=== PATIENT | male | born 1975 | race Caucasian/White ===

== ENCOUNTER 2016-08-14 18:22 | Emergency (ER) | payer SELFPAY ==
[2016-08-14] MEDS ORDERED: NICOTINE 21 MG/24 HR TRANSDERM ONE (19:45)
[2016-08-14] MEDS ORDERED: ONDANSETRON 4 MG VIAL ONE (19:46)
[2016-08-14] MEDS ORDERED: SODIUM CHLORIDE 0.9% 1,000 ML ONE (19:46)
[2016-08-14] MEDS ORDERED: THIAMINE 100 MG in SODIUM CHLORIDE 0.9% 50 ML IV ONE (20:20)
== END 2016-08-15 00:16 | disposition home or self-care (01) ==
LOC: ER 18:22
CPT/HCPCS: 36415; 80053; 81001; 83690; 85025; 85610; 85730; 96361; 96374; 96375